=== PATIENT | male | born 1995 | race Hispanic/Latino ===

== ENCOUNTER 2019-05-18 15:10 | Emergency (ER) | payer OTHER, SELFPAY ==
[2019-05-18] VITALS (8 sets, daily range): BP systolic 144–170; BP diastolic 75–94; PULSE 69–80; RESP 17–20; TEMP 36.7; O2SAT 98–100
--- NOTE | 2019-05-18 15:20 | DI.RAD.S_ITS ---
PROCEDURE: XR HAND LT MIN 3V INDICATIONS: amputation of distal thumb and index finger. TECHNIQUE: 3 views of the hand(s) acquired. COMPARISON: None. FINDINGS: Bones: There is significant traumatic injury to the first and second digits of the left hand. Much of the distal phalanx of the first digit is absent, from the proximal metaphysis distally, with soft tissue distortion. At the second digit there is soft tissue distortion, without foreign body or definite fracture. No osseous absence is associated with a soft tissue injury at the second digit. Soft tissues: No suspicious soft tissue calcifications. IMPRESSION: No foreign body seen. Soft tissue injury is prominent at the first and second digits of the left hand distally. Amputation of much of the distal phalanx of the thumb, no osseous amputation at the distal aspect of the second digit. . Dictated by: Juan R Krueger M.D. on 05/18/2019 at 16:17 Approved by: Juan R Krueger M.D. on 05/18/2019 at 16:20
[2019-05-18] MEDS: ONDANSETRON 4 MG/2 ML INJ (16:04)
[2019-05-18] MEDS: MORPHINE 4 MG/ML INJ (16:04)
[2019-05-18] MEDS: TET,DIPH,PERTUSS(ACELL),VAC/PF 0.5 ML SYRINGE IM (16:21)
[2019-05-18] MEDS: SODIUM CHLORIDE 0.9% 1,000 ML 100 ML IV (16:22)
[2019-05-18] MEDS: CEFAZOLIN 2 GM/100 ML FROZ.PIGGY IV (16:22)
--- NOTE | 2019-05-18 16:34 | ED_ITS ---
HPI - Extremity Injury (Upper) <BROOKLYNN Oneal - Last Filed: 05/18/19 23:46> General Chief Complaint: Trauma Stated Complaint: Hand Time Seen by Provider: 05/18/19 15:46 Source: patient and EMS Mode of arrival: EMS Limitations: no limitations History of Present Illness HPI narrative: This is a 23-year-old male, nonsmoker, who presents to ED with EMS with status post traumatic amputation to left distal thumb and injury to left medial distal finger while he was working on a band saw/meat saw. Patient works at [employer] and had injured these two fingers at 1 [employer]. Patient right dominant hand. Unknown last tetanus immunization. Patient reports able to move his 2nd finger but painful. Patient arrived to ED with the amputated digit on ice. Related Data Home Medications Medication Instructions Recorded Confirmed No Known Home Medications 05/18/19 05/18/19 Allergies Allergy/AdvReac Type Severity Reaction Status Date / Time No Known Drug Allergies Allergy Verified 05/18/19 15:20 Review of Systems <BROOKLYNN Oneal - Last Filed: 05/18/19 23:46> Review of Systems Narrative: General: Denies fever, chills, fatigue, malaise, sweats. HEENT: Denies sinus pain, ear pain, sore throat, difficulty swallowing, dizziness. Respiratory: Denies dyspnea, cough, wheezing, hemoptysis, sputum. Cardiovascular: Denies chest pain, palpitations, orthopnea, edema. Gastrointestinal: Denies nausea, vomiting, abdominal pain, diarrhea, cons tipation, melena. : Denies dysuria, frequency, incontinence, hematuria, urinary retention. Musculoskeletal: See HPI Skin: Denies rash, skin lesions, or other. Neurologic: Denies weakness, headache, numbness, change in speech, confusion, seizures, incoordination. Psychiatric: No concerning psychosocial issues. 12-point review of systems is negative except for those stated above. Patient History <BROOKLYNN Oneal - Last Filed: 05/18/19 23:46> Medical History Asthma (Acute) Surgical History No pertinent past surgical history (Acute) Social History Smoking Status: Never smoker Smoking Status: Never smoker alcohol intake frequency: 0-2 drinks per day Substance Use Type: does not use Exam <BROOKLYNN Oneal - Last Filed: 05/18/19 23:46> Narrative Exam Narrative: General appearance: well developed, well nourished, in no acute distress. Head: normocephalic, atraumatic, no scalp lesions, non-tender. ENT: Bilateral auditory canals and tympanic membranes clear. Hearing grossly intact. Nose without bleeding, purulent discharge, septal hematoma or deviation. Turbinate without erythema or swelling. Facial sinuses nontender to palpate. Mucous membrane moist, no mucosal lesion. Throat without erythema, tonsillar hypertrophy or exudate. Uvula in midline, airway patent. Neck/Thyroid: neck supple, full range of motion, no visible masses or meningeal signs. No JVD, non-tender without lymphadenopathy. Skin: no suspicious rashes, lesions over visible areas. Warm and dry and appropriate color for ethnicity. Heart: no clubbing, no cyanosis, no edema. S1 and S2 normal. RRR w/o murmurs, clicks, or bruits. Lungs: Breathing even and unlabored. No stridor. No accessory muscles used. Able to speak in full sentences. Chest: normal shape and expansion. Abdomen: non-obese, non-distended. Neurologic: alert and oriented. Cognitive exam, PIN [employer] and PNS grossly intact on informal exam. Psych: good eye contact, normal affect. Initial Vital Signs Initial Vital Signs: Vital Signs Temperature 98.1 F 05/18/19 15:11 Pulse Rate 80 05/18/19 15:11 Respiratory Rate 18 05/18/19 15:11 Blood Pressure 160/81 H 05/18/19 15:11 Pulse Oximetry 100 05/18/19 15:11 Extrem Left upper extremity: hand Details: abnormal to inspection (Amputation to left distal thumb), normal capillary refill, neuromotor exam normal, tendon exam normal Location: of the 2nd digit, tenderness, vascular exam Details: radial pulse present, normal ROM of fingers, laceration (Extensive Second digit) and other (Amputation, diagonal, tip of partial thumb attached, slow oozing bleed); swelling <Rochelle C Mank, DO - Last Filed: 05/19/19 07:37> Initial Vital Signs Initial Vital Signs: Vital Signs Temperature 98.1 F 05/18/19 15:11 Pulse Rate 80 05/18/19 15:11 Respiratory Rate 18 05/18/19 15:11 Blood Pressure 160/81 H 05/18/19 15:11 Pulse Oximetry 100 05/18/19 15:11 Procedures <BROOKLYNN Oneal - Last Filed: 05/18/19 23:46> Orthopedic Splinting/Casting Injury #1: Side: left Upper Extremity Injury Location: hand Upper Extremity Immobilizer: volar splint (w/o constrictive wrap) Post splinting neuro exam: intact Post splinting vascular exam: intact Placed by: Nursing Course <BROOKLYNN Oneal - Last Filed: 05/18/19 23:46> Course Course Narrative: Spoke with Debby Richardson at [facility], hand surgeon and she kindly accepted patient's care for transfer, BLS ground level. Decision to Admit Date: 05/18/19 Decision to Admit time: 18:08 Orders Ordered: Discontinued Medications Diphtheria/Tetanus/Acell Pertussis (Adacel) 0.5 ml IM .ONCE ONE Stop: 05/18/19 16:09 Last Admin: 05/18/19 16:21 Dose: 0.5 ml Documented by: TRUE Hydromorphone HCl (Dilaudid) 1 mg IV NOW ONE Stop: 05/18/19 16:23 Last Admin: 05/18/19 16:38 Dose: 1 mg Documented by: TRUE Hydromorphone HCl (Dilaudid) 1 mg IV NOW ONE Stop: 05/18/19 17:51 Last Admin: 05/18/19 19:41 Dose: 1 mg Documented by: DEBRA Cefazolin Sodium/Dextrose (Ancef) 2 gm in 100 mls @ 200 mls/hr IV NOW ONE Stop: 05/18/19 16:33 Last Infusion: 05/18/19 17:15 Dose: 0 mls/hr Documented by: Admin: 05/18/19 16:22 Dose: 200 mls/hr Documented by: TRUE Sodium Chloride (Normal Saline 0.9%) 1,000 mls @ 100 mls/hr IV BOLUS ONE Stop: 05/19/19 02:07 Last Infusion: 05/18/19 20:00 Dose: 0 mls/hr Documented by: Admin: 05/18/19 16:22 Dose: 100 mls/hr Documented by: TRUE Consultations Consultation #1: Dr. Gauthier contacted about the patient and advised to transfer where hand specialist could do microvascular surgery to repair the ampuation. Vital Signs Vital signs: Vital Signs - 8 hr 05/18/19 16:05 05/18/19 16:40 05/18/19 17:00 Pulse Rate 78 80 74 Respiratory Rate 18 18 Blood Pressure [Left Arm] 170/88 H 150/93 H 154/83 H Pulse Oximetry 99 100 98 05/18/19 17:34 05/18/19 18:03 05/18/19 19:25 Pulse Rate 69 71 70 Respiratory Rate 17 18 Blood Pressure [Left Arm] 160/88 H 166/90 H 144/75 H Pulse Oximetry 98 98 98 <Rochelle Hernandez, - Last Filed: 05/19/19 07:37> Orders Ordered: Discontinued Medications Diphtheria/Tetanus/Acell Pertussis (Adacel) 0.5 ml IM .ONCE ONE Stop: 05/18/19 16:09 Last Admin: 05/18/19 16:21 Dose: 0.5 ml Documented by: TRUE Hydromorphone HCl (Dilaudid) 1 mg IV NOW ONE Stop: 05/18/19 16:23 Last Admin: 05/18/19 16:38 Dose: 1 mg Documented by: TRUE Hydromorphone HCl (Dilaudid) 1 mg IV NOW ONE Stop: 05/18/19 17:51 Last Admin: 05/18/19 19:41 Dose: 1 mg Documented by: DEBRA Cefazolin Sodium/Dextrose (Ancef) 2 gm in 100 mls @ 200 mls/hr IV NOW ONE Stop: 05/18/19 16:33 Last Infusion: 05/18/19 17:15 Dose: 0 mls/hr Documented by: Admin: 05/18/19 16:22 Dose: 200 mls/hr Documented by: TRUE Sodium Chloride (Normal Saline 0.9%) 1,000 mls @ 100 mls/hr IV BOLUS ONE Stop: 05/19/19 02:07 Last Infusion: 05/18/19 20:00 Dose: 0 mls/hr Documented by: Admin: 05/18/19 16:22 Dose: 100 mls/hr Documented by: TRUE Vital Signs Vital signs: Vital Signs - 8 hr 05/18/19 16:05 05/18/19 16:40 05/18/19 17:00 Pulse Rate 78 80 74 Respiratory Rate 18 18 Blood Pressure [Left Arm] 170/88 H 150/93 H 154/83 H Pulse Oximetry 99 100 98 05/18/19 17:34 05/18/19 18:03 05/18/19 19:25 Pulse Rate 69 71 70 Respiratory Rate 17 18 Blood Pressure [Left Arm] 160/88 H 166/90 H 144/75 H Pulse Oximetry 98 98 98 MDM - Extremity Injury (Upper) <BROOKLYNN Oneal - Last Filed: 05/18/19 23:46> Differential Diagnosis Differential diagnosis: Likely other (Left hand: Fracture of 2nd finger, left thumb amputation distal digit, laceration 2nd distal finger) Lab Data Attestation: I reviewed the patient's lab results. Result diagrams: 05/18/19 15:56 05/18/19 15:56 Labs: Lab Results 05/18/19 05/18/19 05/18/19 Range/Units 15:56 15:56 15:56 WBC 7.8 (4.5-11.0) X10^3/uL RBC 5.62 (4.5-5.9) X10^6/uL Hgb 16.3 (13.5-17.5) g/dL Hct 47.7 (41-53) % MCV 84.8 (80-100) fL MCH 29.0 (26-34) PG MCHC 34.2 (30-36) % RDW 13.0 (11.6-14.8) % Plt Count 273 (150-400) X10^3/uL Neut % (Auto) 64.4 (50-75) % Lymph % (Auto) 27.0 (25-40) % Hughes % (Auto) 6.7 (3-14) % Eos % (Auto) 1.4 L (2-4) % Baso % (Auto) 0.5 (0-2) % Neut # (Auto) 5100 (7263-7963) /uL Lymph # (Auto) 2100 (7090-6460) /uL Hughes # (Auto) 500 (0-900) /uL Eos # (Auto) 100 (0-450) /uL Baso # (Auto) 0 (0-100) /uL PT 10.6 (10.1-12.7) SECONDS INR 0.9 (0.9-1.3) APTT 31 (26.4-36.2) SECONDS Sodium 138 (137-145) mmol/L Potassium 3.9 (3.4-5.1) mmol/L Chloride 103 (98-107) mmol/L Carbon Dioxide 25 (22-32) mmol/L BUN 15 (9-20) mg/dL Creatinine 0.70 (0.66-1.25) mg/dL Estimated GFR > 60.0 (>60) mL/min BUN/Creatinine Ratio 21.4 (6-22) Glucose 105 H (70-100) mg/dL Calcium 9.4 (8.4-10.2) mg/dL Total Bilirubin 0.6 (0.2-1.3) mg/dL AST 73 H (17-59) IU/L ALT 67 H (<50) IU/L Alkaline Phosphatase 129 H (38-126) U/L Total Protein 8.2 (6.3-8.2) g/dL Albumin 4.9 (3.5-5.0) g/dL Globulin 3.3 (1.7-4.1) g/dL Albumin/Globulin Ratio 1.5 (1.0-2.8) Imaging Data XR-Hand LT: Radiologist's impression: [address] [address] XRay Report Signed Patient: Galina Lamas#: [id number] : 1995Acct:[id number] Age/Sex: 23 / MDate of Service: 05/18/19 Loc: ED Accession Number: [id number] Procedure: XR hand LT min 3V Ordering Provider: Rochelle Hernandez D.O. PROCEDURE: XR HAND LT MIN 3V INDICATIONS: amputation of distal thumb and index finger. TECHNIQUE: 3 views of the hand(s) acquired. COMPARISON: None. FINDINGS: Bones: There is significant traumatic injury to the first and second digits of the left hand. Much of the distal phalanx of the first digit is absent, from the proximal metaphysis distally, with soft tissue distortion. At the second digit there is soft tissue distortion, without foreign body or definite fracture. No osseous absence is associated with a soft tissue injury at the second digit. Soft tissues: No suspicious soft tissue calcifications. IMPRESSION: No foreign body seen. Soft tissue injury is prominent at the first and second digits of the left hand distally. Amputation of much of the distal p halanx of the thumb, no osseous amputation at the distal aspect of the second digit. . Dictated by: Juan R Krueger M.D. on 05/18/2019 at 16:17 Approved by: Juan R Krueger M.D. on 05/18/2019 at 16:20 [facility] Narrative Medical decision making narrative: This is a 23-year-old male presents to ED with EMS with s/p L traumatic amptuation on distal thumb and 2nd medial and volar aspect of proximal laceration injury from band saw when he was working on a [employer] at 2:30 p.m.. Most of the distal phalanx of the 1st left digit had been appy dated from the proximal metaphysis distally. No obvious fracture on 2nd digit per x-ray test with soft tissue distortion. Patient right dominant hand. Patient was treated with IV fluid, cefazolin 2 g, several doses of narcotic pain medications for pain. Tetanus immunization has been updated today. Consulted Dr. Gauthier as scheduled orthopedic group and inst ructed to referred to hand specialist for possible microvascular surgery. [facility] transfer team has been contacted and discussed patient's finding and Dr. Hayes kindly accepted patient's transfer and care. The patient's wound has been dressed with Xeroform and bulky dressing with non constrictive splint as requested per Dr. Hayes. O2 sat on affected 2nd digit in room air was 98%. Lab tests were unremarkable today for CBC, chemistry and PT PTT. Patient informed about pending transfer to [facility] for on evaluation on his amputation and whether surgical intervention for reimplantation is appropriate. Patient verbalized understanding and agrees with the treatment plan. All required document has been completed. Amputated portion has been wrapped in sterile water moist gauze, in occlusive plastic bag and on ice and patient arrived with amputated portion on ice. <Rochelle Hernandez, DO - Last Filed: 05/19/19 07:37> Lab Data Labs: Lab Results 05/18/19 05/18/19 05/18/19 Range/Units 15:56 15:56 15:56 WBC 7.8 (4.5-11.0) X10^3/uL RBC 5.62 (4.5-5.9) X10^6/uL Hgb 16.3 (13.5-17.5) g/dL Hct 47.7 (41-53) % MCV 84.8 (80-100) fL MCH 29.0 (26-34) PG MCHC 34.2 (30-36) % RDW 13.0 (11.6-14.8) % Plt Count 273 (150-400) X10^3/uL Neut % (Auto) 64.4 (50-75) % Lymph % (Auto) 27.0 (25-40) % Hughes % (Auto) 6.7 (3-14) % Eos % (Auto) 1.4 L (2-4) % Baso % (Auto) 0.5 (0-2) % Neut # (Auto) 5100 (0619-2225) /uL Lymph # (Auto) 2100 (7444-3664) /uL Hughes # (Auto) 500 (0-900) /uL Eos # (Auto) 100 (0-450) /uL Baso # (Auto) 0 (0-100) /uL PT 10.6 (10.1-12.7) SECONDS INR 0.9 (0.9-1.3) APTT 31 (26.4-36.2) SECONDS Sodium 138 (137-145) mmol/L Potassium 3.9 (3.4-5.1) mmol/L Chloride 103 (98-107) mmol/L Carbon Dioxide 25 (22-32) mmol/L BUN 15 (9-20) mg/dL Creatinine 0.70 (0.66-1.25) mg/dL Estimated GFR > 60.0 (>60) mL/min BUN/Creatinine Ratio 21.4 (6-22) Glucose 105 H (70-100) mg/dL Calcium 9.4 (8.4-10.2) mg/dL Total Bilirubin 0.6 (0.2-1.3) mg/dL AST 73 H (17-59) IU/L ALT 67 H (<50) IU/L Alkaline Phosphatase 129 H (38-126) U/L Total Protein 8.2 (6.3-8.2) g/dL Albumin 4.9 (3.5-5.0) g/dL Globulin 3.3 (1.7-4.1) g/dL Albumin/Globulin Ratio 1.5 (1.0-2.8) MDM Narrative Medical decision making narrative: Case discussed at length, orthopedic surgery recommendations from Dr. Gauthier are consult with higher level or care such as [facility] or [facility] for possible reimplantation. [facility] contacted, reviewed case and patient transferred to [facility]. Discharge Plan Departure Patient Disposition: [facility] Clinical Impression: Amputation of thumb, left Qualifiers: Encounter type: initial encounter Qualified Code(s): S68.012A - Complete traumatic metacarpophalangeal amputation of left thumb, initial encounter Laceration of finger of left hand Qualifiers: Encounter type: initial encounter Finger: index finger Damage to nail status: unspecified Foreign body presence: unspecified Qualified Code(s): S61.211A - Laceration without foreign body of left index finger without damage to nail, initial encounter Discharge Date/Time: 05/18/19 20:01 Prescriptions: No Action No Known Home Medications RF: 0
[2019-05-18] MEDS: HYDROMORPHONE 1 MG INJ IV ×2 (16:38→19:41)
[2019-05-18 17:13] LABS: Add Manual Diff / Slide Review NO; Basophils Absolute Auto 0 /uL (0-100); Basophils Percent Auto 0.5 % (0-2); Eosinophils Absolute Auto 100 /uL (0-450); Eosinophils Percent Auto 1.4 % (2-4); Hematocrit 47.7 % (41-53); Hemoglobin 16.3 g/dL (13.5-17.5); Lymphocytes Absolute Auto 2100 /uL (1100-4500); Mean Corpuscular HGB Conc 34.2 % (30-36); Mean Corpuscular Volume 84.8 fL (80-100); Monocytes Absolute Auto 500 /uL (0-900); Monocytes Percent Auto 6.7 % (3-14); Neutrophils Absolute Auto 5100 /uL (1500-7000); Neutrophils Percent Auto 64.4 % (50-75); Platelet Count 273 X10^3/uL (150-400); Red Blood Cell Count 5.62 X10^6/uL (4.5-5.9); White Blood Cell Count 7.8 X10^3/uL (4.5-11.0)
[2019-05-18 17:15] LABS: INR 0.9 (0.9-1.3); Prothrombin Time 10.6 SECONDS (10.1-12.7)
[2019-05-18 17:18] LABS: PTT Partial Thromboplastin Tim 31 SECONDS (26.4-36.2)
[2019-05-18 17:19] LABS: Alanine Aminotransferase 67 IU/L (<50); Albumin 4.9 g/dL (3.5-5.0); Albumin Globulin Ratio 1.5 (1.0-2.8); Alkaline Phosphatase 129 U/L (38-126); Aspartate Aminotransferase 73 IU/L (17-59); BUN Creatinine Ratio 21.4 (6-22); Bilirubin Total 0.6 mg/dL (0.2-1.3); Blood Urea Nitrogen 15 mg/dL (9-20); Calcium 9.4 mg/dL (8.4-10.2); Carbon Dioxide 25 mmol/L (22-32); Chloride 103 mmol/L (98-107); Estimated Glomerular Filt Rate > 60.0 mL/min (>60); Globulin 3.3 g/dL (1.7-4.1); Glucose 105 mg/dL (70-100); HEMOLYSIS 23 (0-50); Potassium 3.9 mmol/L (3.4-5.1); Sodium 138 mmol/L (137-145); Total Protein 8.2 g/dL (6.3-8.2)
--- NOTE | 2019-05-18 18:40 | PC.NURSE ---
Pt w/ mangled left thumb, complex laceration to left index finger. Bleeding is well controlled. xeroform to each digits open area then loosely wrapped w/ gauze. orthoglass splint placed w/ hand in anatomical position. Splint / dressing checked by Jerry OVERTON. Pt states pain is improved after splinting. Pt verbalized understanding of plan of care w/ agreement. Family present and supportive.
== END 2019-05-18 20:01 | disposition short-term general hospital (02) ==
PROVIDERS: Emergency Provider Nurse Practitioner Family
DX: S68.012A Complete traumatic metacarpophalangeal amputation of left thumb, initial encounter (principal); W31.2XXA Contact with powered woodworking and forming machines, initial encounter; Y99.0 Civilian activity done for income or pay; Z23 Encounter for immunization
CPT/HCPCS: 36415; 73130; 80053; 85025; 85610; 85730; 90471; 96361; 96365; 96375; 96376; 99282; 99284; 90715; J0690; J1170; J2270; J2405